=== PATIENT | male | born 1970 | race Hispanic/Latino ===

== ENCOUNTER 2018-01-07 15:57 | Emergency (ER) | payer BC ==
[2018-01-07 16:10] VITALS: BMI 35.3
--- NOTE | 2018-01-07 16:14 | ED PDOC ---
Arrival/HPI - General Time Seen by Provider: 01/07/18 16:01 Historian: Patient - History of Present Illness Narrative History of Present Illness (Text): 01/07/18 16:10 47 year old male, with no significant past medical history, presents to the Emergency Department complaining of a transient episode of palpitations earlier this morning. Patient states he was sitting in a bar and eating when he suddenly felt his heart stop for a very brief period of time and then returned with palpitations. Patient called 911 immediately and reports resolved symptoms en route. Patient denies any associated shortness of breath or other somatic complaints at the time. Patient states similar symptoms in the past for which he was admitted to the hospital for further evaluation. Patient currently denies any fever, chills, nausea, vomiting, diarrhea, abdominal pain, chest pain, shortness of breath, neck pain, back pain or any other complaints. Patient admits to drinking vodka today and states he is an occasional drinker. Patient denies any smoking cigarettes or substance use. PMD: Dr. Chavarria Time/Duration: Prior to Arrival Symptom Onset: Gradual Symptom Course: Resolved Context: Other (Bar) Past Medical History - Provider Review Nursing Documentation Reviewed: Yes - Cardiac Hx Atrial Fibrillation: Yes - Musculoskeletal/Rheumatological Hx Falls: No - Psychiatric Hx Depression: No Hx Emotional Abuse: No Hx Physical Abuse: No Hx Substance Use: No - Surgical History Hx Arthroscopy: Yes (10 yrs ago) - Suicidal Assessment Feels Threatened In Home Enviroment: No Family/Social History - Physician Review Nursing Documentation Reviewed: Yes Family/Social History: No Known Family HX Smoking Status: Never Smoked Hx Alcohol Use: No Hx Substance Use: No Hx Substance Use Treatment: No Allergies/Home Meds Allergies/Adverse Reactions: Allergies No Known Allergies Allergy (Verified 01/07/18 16:07) Home Medications: Home Meds Medication Instructions Recorded Confirmed Nebivolol [Bystolic] 10 mg PO DAILY 01/07/18 01/07/18 Review of Systems - Physician Review All systems were reviewed & negative as marked: Yes - Review of Systems Constitutional: absent: Fevers Respiratory: absent: SOB, Cough Cardiovascular: Palpitations. absent: Chest Pain Gastrointestinal: absent: Abdominal Pain, Diarrhea, Nausea, Vomiting Musculoskeletal: absent: Back Pain, Neck Pain Neurological: absent: Headache, Dizziness Physical Exam Vital Signs Reviewed: Yes Vital Signs Pulse Resp BP Pulse Ox 01/07/18 16:08 95 H 18 127/45 L 97 Temperature: Afebrile Blood Pressure: Hypotensive Pulse: Regular Respiratory Rate: Normal Appearance: Positive for: Well-Appearing, Non-Toxic, Comfortable Pain Distress: None Mental Status: Positive for: Alert and Oriented X 3 - Systems Exam Head: Present: Atraumatic, Normocephalic Pupils: Present: PERRL Extroacular Muscles: Present: EOMI Conjunctiva: Present: Normal Mouth: Present: Moist Mucous Membranes Neck: Present: Normal Range of Motion Respiratory/Chest: Present: Clear to Auscultation, Good Air Exchange. No: Respiratory Distress, Accessory Muscle Use Cardiovascular: Present: Regular Rate and Rhythm, Normal S1, S2. No: Murmurs Abdomen: No: Tenderness, Distention, Peritoneal Signs Back: Present: Normal Inspection Upper Extremity: Present: Normal Inspection. No: Cyanosis, Edema Lower Extremity: Present: Normal Inspection. No: Edema Neurological: Present: GCS=15, CN II-XII Intact, Speech Normal Skin: Present: Warm, Dry, Normal Color. No: Rashes Psychiatric: Present: Alert, Oriented x 3, Normal Insight, Normal Concentration Medical Decision Making ED Course and Treatment: 01/07/18 16:31 Impression: 47 year old male presents to the Emergency Department for evaluation of a transient episode of palpitations. Differential Diagnosis included but are not limited to: Palpitations Plan: -- EKG -- Labs -- Chest X-ray -- Aspirin -- Reassess and disposition Prior Visits: Notes and results from previous visits were reviewed. Progress Notes: 01/07/18 16:30 EKG: Ordered, reviewed, and independently interpreted the EKG. Rate : 95 BPM Rhythm : NSR Interpretation :T wave inversion in Lead 3. Flattened T wave in aVF. Unchanged from previous EKG performed on 03/01/12. 01/07/18 17:18 Troponin negative. CXR reviewed and normal. EKG reviewed and similar to previous EKG. 01/07/18 17:[address] Torres, who is aware and agrees with Emergency Department management plan to repeat troponin. If second troponin is negative, requests patient to follow-up with him in his outpatient facility tomorrow. Spoke to Dr. Chavarria, who is aware and agrees with plan to have patient follow-up with his accounts payable clerk tomorrow. 01/07/18 18:54 Repeat EKG shows NSR@ 81 BPM. No changes from prior EKG. 01/07/18 19:23 Repeat troponin is negative. Patient is resting comfortably and is in no pain. Patient will be discharged home with follow-up instructions for his accounts payable clerk and PMD. - RAD Interpretation Radiology Orders: 01/07/18 16:11 CHEST PORTABLE [RAD] Stat - EKG Interpretation Interpreted by ED Physician: Yes Type: 12 lead EKG - Medication Orders Current Medication Orders: Discontinued Medications Aspirin (Aspirin) 325 mg PO STAT STA Stop: 01/07/18 16:11 - Scribe Statement The provider has reviewed the documentation as recorded by the Scribe Rosi Estrada. All medical record entries made by the Scribe were at my direction and personally dictated by me. I have reviewed the chart and agree that the record accurately reflects my personal performance of the history, physical exam, medical decision making, and the department course for this patient. I have also personally directed, reviewed, and agree with the discharge instructions and disposition. Disposition/Present on Arrival - Present on Arrival Any Indicators Present on Arrival: No History of DVT/PE: No History of Uncontrolled Diabetes: No Urinary Catheter: No History Surgical Site Infection Following: None - Disposition Have Diagnosis and Disposition been Completed?: Yes Diagnosis: Palpitations Disposition: HOME/ ROUTINE Disposition Time: 17:20 Patient Plan: Discharge Condition: IMPROVED Discharge Instructions (ExitCare): Palpitations (DC) Additional Instructions: DEX BAZAN, thank you for letting us take care of you today. Your provider was Omid Stewart DO and you were treated for Palpitations. The emergency medical care you received today was directed at your acute symptoms. If you were prescribed any medication, please fill it and take as directed. It may take several days for your symptoms to resolve. Return to the Emergency Department if your symptoms worsen, do not improve, or if you have any other problems. Please contact your doctor or call one of the physicians/clinics you have been referred to that are listed on the Patient Visit Information form that is included in your discharge packet. Bring any paperwork you were given at discharge with you along with any medications you are taking to your follow up visit. Our treatment cannot replace ongoing medical care by a primary care provider outside of the emergency department. Thank you for allowing the [facility] team to be part of your care today. If you had an X-Ray or CT scan: A Radiologist will review the ED reading if any change in treatment is needed we will contact you. If you had a blood, urine, or wound culture: It will take several days for the results, if any change in treatment is needed we will contact you. If you had an STI test: It will take 48 hours for the results. Please call after 1 week if you have not heard back. Referrals: Jefferson Lagunas MD [Staff Provider] - Follow up with primary Lit Chavarria MD [Family Provider] - Follow up with primary Forms: [employer] (Kazakh), WORK NOTE
[2018-01-07 16:56] LABS: BASO # 0.02 K/mm3 (0.0-2.0); BASO % 0.3 % (0.0-3.0); EOS # 0.1 (0.0-0.7); EOS % 1.3 % (1.5-5.0); GRAN # 4.54 (1.4-6.5); GRAN % 68.1 % (50.0-68.0); HEMOGLOBIN 14.5 g/dL (14.0-18.0); LYMPH # 1.8 (1.2-3.4); LYMPH % 26.4 % (22.0-35.0); MEAN CELL VOLUME 86.2 fl (80.0-105.0); MEAN CORPUSCULAR HEMOGLOBIN 31.2 pg (25.0-35.0); MEAN CORPUSCULAR HGB CONC 36.2 g/dl (31.0-37.0); MEAN PLATELET VOLUME 9.6 fl (7.0-11.0); MONO # 0.3 (0.1-0.6); MONO % 3.9 % (1.0-6.0); RBC 4.65 10^6/uL (3.5-6.1); RED CELL DISTRIBUTION WIDTH 12.7 % (11.5-14.5); WHITE BLOOD COUNT 6.7 10^3/ul (4.5-11.0)
[2018-01-07 17:01] LABS: INR 1.02; PARTIAL THROMBOPLASTIN TIME 30.5 Seconds (25.1-36.5); PROTHROMBIN TIME 11.6 SECONDS (9.4-12.5)
[2018-01-07 17:05] LABS: ALB/GLOB RATIO 1.5 (1.1-1.8); ALBUMIN 4.3 g/dL (3.0-4.8); ALT/SGPT 44 U/L (7-56); AST/SGOT 29 U/L (17-59); BLOOD UREA NITROGEN 16 mg/dL (7-21); CALCIUM 9.5 mg/dL (8.4-10.5); GFR NON-AFRICAN AMERICAN > 60
[2018-01-07 17:16] LABS: TROPONIN I < 0.01 ng/mL
--- NOTE | 2018-01-07 17:24 | RAD ---
Date of service: 01/07/2018 HISTORY: chest pain COMPARISON: Portable chest 02/28/2012. FINDINGS: LUNGS: No active pulmonary disease. PLEURA: No significant pleural effusion identified, no pneumothorax apparent. CARDIOVASCULAR: Stable cardiomediastinal silhouette. No pulmonary vascular congestion. OSSEOUS STRUCTURES: No significant abnormalities. VISUALIZED UPPER ABDOMEN: Normal. OTHER FINDINGS: None. IMPRESSION: No interval acute cardiopulmonary disease appreciated. Stable prominent cardiomediastinal silhouette.
[2018-01-07 17:38] VITALS: O2SAT 100
[2018-01-07 19:35] VITALS: BP 119/77; PULSE 89; RESP 17; TEMP 98
--- NOTE | 2018-01-08 10:01 | CARD ---
APPROVED REPORT Date of service: 01/07/2018 EKG Measurement Heart [id number] <Conclusion> Normal sinus rhythm Nonspecific ST abnormality Q in lll NSSTW changes, new
--- NOTE | 2018-01-08 10:07 | CARD ---
APPROVED REPORT Date of service: 01/07/2018 EKG Measurement Heart [id number] <Conclusion> Normal sinus rhythm Slight ST elevations 1, AVL, 2,3,F. No change from earlier ECG
== END 2018-01-07 19:35 | disposition home or self-care (01) ==
LOC: ED 15:57
DX: R00.2 Palpitations (principal)

== ENCOUNTER 2018-03-31 10:29 | Emergency (ER) | payer OTHER, BC ==
[2018-03-31 10:31] VITALS: BMI 35.3
[2018-03-31 10:36] VITALS: RESP 18
--- NOTE | 2018-03-31 12:09 | ED PDOC ---
Arrival/HPI - General Historian: Patient - History of Present Illness Narrative History of Present Illness (Text): 03/31/18 12:06 48yo male with history of Afib present with complaint of left ankle pain s/p trauma this morning. States he twisted his ankle, when he stepped down stairs this morning. Reports pain with ambulation. Did not take any pain medication. Denies any other complaint. <Marcos Corrigan A - Last Filed: 03/31/18 14:53> <Ben Polanco - Last Filed: 03/31/18 15:30> - General Chief Complaint: Lower Extremity Problem/Injury Time Seen by Provider: 03/31/18 10:32 Past Medical History - Provider Review Nursing Documentation Reviewed: Yes - Infectious Disease Hx of Infectious Diseases: None - Cardiac Hx Atrial Fibrillation: Yes - HEENT Other/Comment: Detached retina L eye, had sx - Musculoskeletal/Rheumatological Hx Falls: No - Psychiatric Hx Depression: No Hx Emotional Abuse: No Hx Physical Abuse: No Hx Substance Use: No - Surgical History Hx Arthroscopy: Yes (10 yrs ago) Hx Orthopedic Surgery: Yes (L foot screw) - Anesthesia Hx Anesthesia: Yes Hx Anesthesia Reactions: No Hx Malignant Hyperthermia: No - Suicidal Assessment Feels Threatened In Home Enviroment: No <Marcos Corrigan A - Last Filed: 03/31/18 14:53> Family/Social History - Physician Review Nursing Documentation Reviewed: Yes Family/Social History: Unknown Family HX Smoking Status: Never Smoked Hx Alcohol Use: No Hx Substance Use: No Hx Substance Use Treatment: No <Marcos Corrigan A - Last Filed: 03/31/18 14:53> Allergies/Home Meds <Marcos Corrigan A - Last Filed: 03/31/18 14:53> <Ben Polanco - Last Filed: 03/31/18 15:30> Allergies/Adverse Reactions: Allergies No Known Allergies Allergy (Verified 01/07/18 16:07) Home Medications: Home Meds Medication Instructions Recorded Confirmed Nebivolol [Bystolic] 10 mg PO DAILY 01/07/18 03/31/18 Review of Systems - Physician Review All systems were reviewed & negative as marked: Yes - Review of Systems Constitutional: Normal Eyes: Normal ENT: Normal Respiratory: Normal Cardiovascular: Normal Gastrointestinal: Normal Genitourinary Male: Normal Musculoskeletal: Arthralgias (Left ankle pain) Skin: Normal Neurological: Normal Endocrine: Normal Hemo/Lymphatic: Normal Psychiatric: Normal <Diru,Happiness A - Last Filed: 03/31/18 14:53> Physical Exam Vital Signs Reviewed: Yes Vital Signs Temp Pulse Resp BP Pulse Ox 03/31/18 10:35 97.7 F 85 18 131/87 95 Temperature: Afebrile Blood Pressure: Normal Pulse: Regular Respiratory Rate: Normal Appearance: Positive for: Well-Appearing, Non-Toxic, Comfortable Pain Distress: None Mental Status: Positive for: Alert and Oriented X 3 - Systems Exam Head: Present: Atraumatic, Normocephalic Pupils: Present: PERRL Extroacular Muscles: Present: EOMI Conjunctiva: Present: Normal Mouth: Present: Moist Mucous Membranes Neck: Present: Normal Range of Motion Respiratory/Chest: Present: Clear to Auscultation, Good Air Exchange. No: Respiratory Distress, Accessory Muscle Use Cardiovascular: Present: Regular Rate and Rhythm, Normal S1, S2. No: Murmurs Abdomen: No: Tenderness, Distention, Peritoneal Signs Back: Present: Normal Inspection Upper Extremity: Present: Normal Inspection. No: Cyanosis, Edema Lower Extremity: Present: NORMAL PULSES, Normal ROM, Tenderness (Left lateral malleolus), Swelling (Left lateral malleolus), Neurovascularly Intact. No: Edema Neurological: Present: GCS=15, CN II-XII Intact, Speech Normal Skin: Present: Warm, Dry, Normal Color. No: Rashes Psychiatric: Present: Alert, Oriented x 3, Normal Insight, Normal Concentration <Diru,Happiness A - Last Filed: 03/31/18 14:53> Vital Signs Temp Pulse Resp BP Pulse Ox 03/31/18 13:44 97.9 F 89 18 97 03/31/18 12:30 97.9 F 88 18 134/78 97 03/31/18 10:35 97.7 F 85 18 131/87 95 <TolericoBen - Last Filed: 03/31/18 15:30> Medical Decision Making ED Course and Treatment: 03/31/18 14:52 48yo male in ED for left ankle pain. Left ankle CT IMPRESSION: Mild lateral malleolar soft tissue swelling. Minimal roughly 1-2 millimeter loose body adjacent to the anterior lateral tibial plafond. No evidence of acute fracture. Result was DW the ot. Luis wrap applied and crutches given Advised to RICE ankle Referred to ortho/nozzle worker - RAD Interpretation Radiology Orders: 03/31/18 10:57 EXT LOWER W/O CONTRAST LEFT [CT] Stat - Medication Orders Current Medication Orders: Discontinued Medications Tramadol HCl (Ultram) 50 mg PO STAT STA Stop: 03/31/18 10:59 Last Admin: 03/31/18 11:24 Dose: Not Given Non-Admin Reason: Patient Refused <Marcos Corrigan A - Last Filed: 03/31/18 14:53> - RAD Interpretation Radiology Orders: 03/31/18 10:57 EXT LOWER W/O CONTRAST LEFT [CT] Stat - Medication Orders Current Medication Orders: Discontinued Medications Acetaminophen (Tylenol 325mg Tab) 650 mg PO STAT STA Stop: 03/31/18 12:07 Last Admin: 03/31/18 12:45 Dose: 650 mg MAR Pain/Vitals Document 03/31/18 12:45 [email or web address] (Rec: 03/31/18 12:46 [email or web address] [id number]) Pain Reassessment Is This A Pain ReAssessment? No Sleep Is patient sleeping during reassessment? No Presence of Pain Presence of Pain Yes Pain Scale Used Protocol: PSCALES Pain Scale Used Numeric Location Left, Right or Bilateral Left Pain Location Body Site Ankle Description Constant Intensity 3 Scale Used Numeric Pain Behavior Facial Grimacing Aggravating Factors Changing Position Alleviating Factors Medication Tramadol HCl (Ultram) 50 mg PO STAT STA Stop: 03/31/18 10:59 Last Admin: 03/31/18 11:24 Dose: Not Given Non-Admin Reason: Patient Refused <Ben Polanco - Last Filed: 03/31/18 15:30> - PA / [employer] SUPERVISOR / Resident Statement / has reviewed & agrees with the documentation as recorded. <Ben Polanco - Last Filed: 03/31/18 15:30> Disposition/Present on Arrival - Present on Arrival Any Indicators Present on Arrival: No History of DVT/PE: No History of Uncontrolled Diabetes: No Urinary Catheter: No History of Decub. Ulcer: No History Surgical Site Infection Following: None - Disposition Have Diagnosis and Disposition been Completed?: Yes Disposition Time: 13:25 Patient Plan: Discharge <Marcos Corrigan A - Last Filed: 12/19/18 14:53> <Ben Polanco - Last Filed: 03/31/18 15:30> - Disposition Diagnosis: Ankle sprain Disposition: HOME/ ROUTINE Condition: STABLE Discharge Instructions (ExitCare): Ankle Sprain Additional Instructions: Follow up with a Fly Winder/Orthopedist Rest, Ice, compress and elevate ankle Return to ED for any new or worsening symptoms Referrals: Lit Chavarria MD [Primary Care Provider] - Follow up with primary Chance Root DPM [Staff Provider] - Follow up with primary Scottie Bravo DO [Staff Provider] - Follow up with primary Forms: [employer] (Togolese)
--- NOTE | 2018-03-31 13:17 | CT ---
Date of service: 03/31/2018 PROCEDURE: HISTORY: left ankle pain/swelling s/p trauma COMPARISON: TECHNIQUE: FINDINGS: Mild lateral malleolar soft tissue swelling. Minimal roughly 1-2 millimeter loose body adjacent to the anterior lateral tibial plafond. No joint effusion. The ankle mortise is otherwise intact. Status post ORIF of a 5th metatarsal fracture. IMPRESSION: Mild lateral malleolar soft tissue swelling. Minimal roughly 1-2 millimeter loose body adjacent to the anterior lateral tibial plafond. No evidence of acute fracture.
[2018-03-31 13:38] VITALS: BP 134/78; TEMP 97.9; O2SAT 97
[2018-03-31 13:51] VITALS: PULSE 89
== END 2018-03-31 13:44 | disposition home or self-care (01) ==
LOC: ED 10:29
DX: S93.402A Sprain of unspecified ligament of left ankle, initial encounter (principal); X50.1XXA Overexertion from prolonged static or awkward postures, initial encounter; I48.91 Unspecified atrial fibrillation